=== PATIENT | female | born 1995 | race Caucasian/White ===

== ENCOUNTER 2018-01-03 18:13 | Emergency (ER) | payer OTHER, SELFPAY ==
[2018-01-03] MEDS ORDERED: HYDROCODONE/APAP 5/325 MG TAB ONE (19:05)
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
== END 2018-01-03 20:56 | disposition home or self-care (01) ==
LOC: ER 18:13
DX: S02.32XA Fracture of orbital floor, left side, initial encounter for closed fracture (principal); Y09 Assault by unspecified means
CPT/HCPCS: 70450; 99284

== ENCOUNTER 2018-03-18 14:57 | Emergency (ER) | payer SELFPAY ==
--- NOTE | 2018-03-18 15:32 | RAD REPORT ---
EXAM DESCRIPTION: Tab Rios (2 Views)03/18/2018 3:26 pm CLINICAL HISTORY: Cough COMPARISON: 2015 FINDINGS: The lungs appear clear of acute infiltrate. The heart is normal size IMPRESSION: No acute abnormalities displayed
--- NOTE | 2018-03-18 16:01 | EDPHYS ---
Physician Documentation [facility] Name: Miguelina Aranda Age: 22 yrs Sex: Female : 1995 Arrival Date: 03/18/2018 Time: 14:59 Bed 10 Private MD: None, None ED Physician Jama Myers HPI: 03/18 15:54 This 22 yrs old Female presents to ER via Ambulatory with complaints of jr8 Cough, BODY ACHES. 15:54 The patient or guardian reports cough, that is intermittent, described as mild, with no jr8 sputum. Onset: The symptoms/episode began/occurred acutely, 3 day(s) ago. Severity of symptoms: At their worst the symptoms were mild, in the emergency department the symptoms are unchanged. Modifying factors: The symptoms are alleviated by nothing, the symptoms are aggravated by nothing. Associated signs and symptoms: Pertinent positives: rhinorrhea, arthralgias and myalgias . The patient has not experienced similar symptoms in the past. The patient has not recently seen a physician. Historical: - Allergies: 15:01 No Known Allergies; sv - PMHx: 15:01 Pneumonia; sv - PSHx: 15:01 None; sv - Immunization history:: Flu vaccine is up to date. - Social history:: Smoking status: Patient uses tobacco products, smokes one pack cigarettes per day. - Ebola Screening: : No symptoms or risks identified at this time. ROS: 15:54 Constitutional: Positive for body aches, Negative for fever. jr8 15:54 ENT: Positive for rhinorrhea, Negative for drainage from ear(s), ear pain, sinus congestion, sinus pain, sore throat, difficulty swallowing, difficulty handling secretions. 15:54 Respiratory: Positive for cough, Negative for dyspnea on exertion, shortness of breath, sputum production, wheezing. 15:54 All other systems are negative. Exam: 15:54 Eyes: Pupils equal round and reactive to light, extra-ocular motions intact. Lids and jr8 lashes normal. Conjunctiva and sclera are non-icteric and not injected. Cornea within normal limits. Periorbital areas with no swelling, redness, or edema. ENT: Nares patent. No nasal discharge, no septal abnormalities noted. Tympanic membranes are normal and external auditory canals are clear. Oropharynx with no redness, swelling, or masses, exudates, or evidence of obstruction, uvula midline. Mucous membranes moist. Neck: Trachea midline, no thyromegaly or masses palpated, and no cervical lymphadenopathy. Supple, full range of motion without nuchal rigidity, or vertebral point tenderness. No Meningismus. Cardiovascular: Regular rate and rhythm with a normal S1 and S2. No gallops, murmurs, or rubs. Normal PMI, no JVD. No pulse deficits. Respiratory: Lungs have equal breath sounds bilaterally, clear to auscultation and percussion. No rales, rhonchi or wheezes noted. No increased work of breathing, no retractions or nasal flaring. Abdomen/GI: Soft, non-tender, with normal bowel sounds. No distension or tympany. No guarding or rebound. No evidence of tenderness throughout. Back: No spinal tenderness. No costovertebral tenderness. Full range of motion. Skin: Warm, dry with normal turgor. Normal color with no rashes, no lesions, and no evidence of cellulitis. MS/ Extremity: Pulses equal, no cyanosis. Neurovascular intact. Full, normal range of motion. Neuro: Awake and alert, GCS 15, oriented to person, place, time, and situation. Cranial nerves II-XII grossly intact. Motor strength 5/5 in all extremities. Sensory grossly intact. Cerebellar exam normal. Normal gait. Vital Signs: 15:01 BP 109 / 76; Pulse 93; Resp 18; Temp 98.2; Pulse Ox 100% ; Weight 53.52 kg; Height 5 sv ft. 5 in. (165.10 cm); Pain 5/10; 15:01 Body Mass Index 19.63 (53.52 kg, 165.10 cm) sv MDM: 15:21 Patient medically screened. ma2 15:54 Data reviewed: vital signs, nurses notes, lab test result(s), Flu: negative radiologic jr8 studies, plain films, and as a result, I will discharge patient. Data interpreted: Pulse oximetry: on room air is 100 %. Interpretation: normal. Counseling: I had a detailed discussion with the patient and/or guardian regarding: the historical points, exam findings, and any diagnostic results supporting the discharge/admit diagnosis, lab results, radiology results, the need for outpatient follow up, a family practitioner, to return to the emergency department if symptoms worsen or persist or if there are any questions or concerns that arise at home. 03/18 15:03 Order name: Flu; Complete Time: 15:49 sv 03/18 15:03 Order name: Chest Pa And Lat (2 Views) XRAY; Complete Time: 15:49 sv Administered Medications: No medications were administered Disposition: 18:43 Co-signature as Attending Physician, Jama Myers MD. ma2 Disposition: 03/18/18 15:59 Discharged to Home. Impression: Acute upper respiratory infection, unspecified. - Condition is Stable. - Discharge Instructions: Upper Respiratory Infection, Adult. - Prescriptions for Guaifenesin AC 10- 100 mg/5 mL Oral Liquid - take 10 milliliters by ORAL route every 4 hours As needed; 120 milliliter. - Medication Reconciliation Form, Thank You Letter, Antibiotic Education, Prescription Opioid Use form. - Follow up: Private Physician; When: As needed; Reason: If symptoms return, Recheck today's complaints, Continuance of care, Re-evaluation by your physician. - Problem is new. - Symptoms have improved. Signatures: Dispatcher [employer] [facility] Lynn White RN RN Katie Chadwick RN RN ss Roszak, Josh, PA PA jr8 Jama Myers MD MD ma2 Corrections: (The following items were deleted from the chart) 16:06 15:59 03/18/2018 15:59 Discharged to Home. Impression: Acute upper respiratory ss infection, unspecified. Condition is Stable. Forms are Medication Reconciliation Form, Thank You Letter, Antibiotic Education, Prescription Opioid Use. Follow up: Private Physician; When: As needed; Reason: If symptoms return, Recheck today's complaints, Continuance of care, Re-evaluation by your physician. Problem is new. Symptoms have improved. jr8
--- NOTE | 2018-03-18 16:01 | ER ---
Nurse's Notes [facility] Name: Miguelina Aranda Age: 22 yrs Sex: Female : 1995 Arrival Date: 03/18/2018 Time: 14:59 Bed 10 Private MD: None, None Diagnosis: Acute upper respiratory infection, unspecified Presentation: 03/18 15:00 Presenting complaint: Patient states: non-productive cough, bodyaches x 3 days. sv Transition of care: patient was not received from another setting of care. Onset of symptoms was March 15, 2018. Care prior to arrival: None. 15:00 Method Of Arrival: Ambulatory sv 15:00 Acuity: ANJUM 4 sv 16:06 Risk Assessment: Do you want to hurt yourself or someone else? Patient reports no ss desire to harm self or others. Initial Sepsis Screen: Does the patient meet any 2 criteria? No. Patient's initial sepsis screen is negative. Does the patient have a suspected source of infection? No. Patient's initial sepsis screen is negative. Triage Assessment: 15:00 General: Appears in no apparent distress. uncomfortable, slender, Behavior is calm, sv cooperative, appropriate for age. Pain: Complains of pain in "my whole body" Pain currently is 5 out of 10 on a pain scale. Quality of pain is described as aching, Pain began 2-3 days ago. Is continuous. Neuro: Level of Consciousness is awake, alert, obeys commands, Oriented to person, place, time, situation, Moves all extremities. Gait is steady. Respiratory: Reports cough that is non-productive, Airway is patent Respiratory effort is even, unlabored, Respiratory pattern is regular, symmetrical. Derm: Skin is pink, warm \\T\\ dry. Historical: - Allergies: 15:01 No Known Allergies; sv - PMHx: 15:01 Pneumonia; sv - PSHx: 15:01 None; sv - Immunization history:: Flu vaccine is up to date. - Social history:: Smoking status: Patient uses tobacco products, smokes one pack cigarettes per day. - Ebola Screening: : No symptoms or risks identified at this time. Screenin:05 Abuse screen: Denies threats or abuse. Denies injuries from another. Nutritional sv screening: No deficits noted. Tuberculosis screening: No symptoms or risk factors identified. Fall Risk None identified. Assessment: 15:05 Reassessment: Patient appears in no apparent distress at this time. No changes from previously documented assessment. See triage assessment. Vital Signs: 15:01 BP 109 / 76; Pulse 93; Resp 18; Temp 98.2; Pulse Ox 100% ; Weight 53.52 kg; Height 5 sv ft. 5 in. (165.10 cm); Pain 5/10; 15:01 Body Mass Index 19.63 (53.52 kg, 165.10 cm) ED Course: 14:59 Patient arrived in ED. sb2 15:00 None, None is Private Physician. sb2 15:01 Triage completed. sv 15:03 Arm band placed on. sv 15:05 Patient has correct armband on for positive identification. Door closed. sv 15:21 Jama Myers MD is Attending Physician. ma2 15:21 X-ray completed. Patient tolerated procedure well. Patient moved to radiology pt mh1 ambulated to radiology. 15:24 Chest Pa And Lat (2 Views) XRAY In Process Unspecified. EDMS 15:31 Awaiting lab results, Awaiting radiology results. sv 15:48 Alo Wheatley PA is PHCP. jr8 15:48 Jama Myers MD is Attending Physician. jr8 16:04 No provider procedures requiring assistance completed. Patient did not have IV access ss during this emergency room visit. Administered Medications: No medications were administered Outcome: 15:59 Discharge ordered by . jr8 16:04 Discharged to home ambulatory. ss 16:04 Condition: good 16:04 Discharge instructions given to patient, family, Instructed on discharge instructions, follow up and referral plans. medication usage, Demonstrated understanding of instructions, follow-up care, medications, Prescriptions given X 1. 16:06 Patient left the ED. ss Signatures: Dispatcher [employer] EDMS Lynn White RN RN Maritza Antonio 1 Katie Chadwick RN RN Alo Wheatley PA PA jr8 Jama Myers MD MD ma2 Billeau, Sheri sb2 Corrections: (The following items were deleted from the chart) 15:03 15:01 Pulse 93bpm; Resp 18bpm; Pulse Ox 100%; Temp 98.2F; 53.52 kg; Height 5 ft. 5 in.; sv BMI: 19.6; Pain 5/10; sv
== END 2018-03-18 16:06 | disposition home or self-care (01) ==
LOC: ER 14:57
DX: J06.9 Acute upper respiratory infection, unspecified (principal); F17.210 Nicotine dependence, cigarettes, uncomplicated
CPT/HCPCS: 71046; 87804; 99283

== ENCOUNTER 2018-06-16 15:36 | Emergency (ER) | payer SELFPAY ==
[2018-06-16 15:57] LABS: Absolute Lymphocytes (CBC) 1.7 K/uL (0.7-4.9); Absolute Neutrophil 6.9 K/uL (1.8-8.0); Basophils % 0.6 % (0-1.3); Eosinophils % 2.1 % (0-4.4); Hematocrit 36.6 % (36.0-45.0); Lymphocytes % 17.4 % (15.3-44.8); Monocytes % 9.7 % (3.3-12.3); RBC Red Blood Cell Count 4.01 M/uL (3.86-4.86)
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
[2018-06-16] MEDS ORDERED: NA CHLORIDE 0.9% 1,000 ML ONE (16:02)
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
[2018-06-16 17:33] LABS: Barbiturates NEGATIVE (NEGATIVE); Benzodiazepines POSITIVE (NEGATIVE); Cocaine NEGATIVE (NEGATIVE); METHAMPHETAM POSITIVE (NEGATIVE); Methadone NEGATIVE (NEGATIVE); Opiates NEGATIVE (NEGATIVE); Phencyclidine NEGATIVE (NEGATIVE); THC Cannibis POSITIVE (NEGATIVE)
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
[2018-06-16 17:59] LABS: Urine Blood TRACE (NEG); Urine Glucose NEGATIVE (NEG); Urine Protein NEGATIVE (NEG); Urine Specific Gravity 1.015 (1.005-1.030)
--- NOTE | 2018-06-16 21:39 | EKG ---
Test Date: 2018-06-16 Test Time: 15:42:38 Tractor Operator Laser Leveling: VENECIA MEASUREMENT RESULTS: Intervals: Rate: 90 SC: 136 QRSD: 98 QT: 364 QTc: 445 [place]: P: 74 SC: 136 QRS: 66 T: 41 INTERPRETIVE STATEMENTS: Normal sinus rhythm Normal ECG Compared to ECG 05/17/2014 10:37:18 No significant changes Electronically Signed On 06-16-18 21:38:10 CDT by Jesse Quinn
== END 2018-06-16 18:02 | disposition home or self-care (01) ==
LOC: ER 15:36
DX: S06.0X0A Concussion without loss of consciousness, initial encounter (principal); F19.10 Other psychoactive substance abuse, uncomplicated; S09.90XA Unspecified injury of head, initial encounter; V49.9XXA Car occupant (driver) (passenger) injured in unspecified traffic accident, initial encounter
CPT/HCPCS: 36415; 70450; 70486; 71260; 72125; 74177; 76377; 80307; 80320; 81003; 81025; 85025; 86850; 86900; 86901; 93005; J7030; Q9967

== ENCOUNTER 2018-06-27 22:09 | Emergency (ER) | payer SELFPAY ==
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
[2018-06-27] MEDS ORDERED: ALBUTEROL 2.5 MG/3 ML NEB SOL ONE (23:35)
[2018-06-27] MEDS ORDERED: IPRATROPIUM BROM 0.5MG/2.5ML ONE (23:35)
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
== END 2018-06-27 23:31 | disposition left against medical advice (07) ==
LOC: ER 22:09
DX: J02.9 Acute pharyngitis, unspecified (principal); F17.210 Nicotine dependence, cigarettes, uncomplicated
CPT/HCPCS: 87070; 87081; 87804; 99283

== ENCOUNTER 2018-10-07 14:28 | Emergency (ER) | payer SELFPAY ==
[2018-10-07] MEDS ORDERED: NA CHLORIDE 0.9% 1,000 ML ONE (14:57)
[2018-10-07 15:04] LABS: Absolute Lymphocytes (CBC) 1.9 K/uL (0.7-4.9); Basophils % 0.5 % (0-1.3); Hematocrit 37.6 % (36.0-45.0); Lymphocytes % 24.6 % (15.3-44.8); MPV 10.4 fL (7.6-11.3); RBC Red Blood Cell Count 4.09 M/uL (3.86-4.86)
[2018-10-07 15:21] LABS: ALT/SGPT 22 U/L (12-78); AST/SGOT 18 U/L (15-37); Albumin 3.6 g/dL (3.4-5.0); Alkaline Phosphatase 61 U/L (45-117); BUN Blood Urea Nitrogen 5 mg/dL (7-18); Bicarbonate 30 mmol/L (21-32); Bilirubin Direct 0.1 mg/dL (0-0.2); Bilirubin Total 0.2 mg/dL (0.2-1.0); Glucose Level 72 mg/dL (74-106); Potassium 3.9 mmol/L (3.5-5.1); Protein, Total 7.1 g/dL (6.4-8.2); Sodium Level 140 mmol/L (136-145)
[2018-10-07 15:25] LABS: Protime INR 0.95
[2018-10-07 16:48] LABS: Urine Blood TRACE (NEG); Urine Glucose NEGATIVE (NEG); Urine Protein NEGATIVE (NEG)
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
[2018-10-07 17:02] LABS: Barbiturates NEGATIVE (NEGATIVE); Benzodiazepines POSITIVE (NEGATIVE); Cocaine NEGATIVE (NEGATIVE); METHAMPHETAM POSITIVE (NEGATIVE); Methadone NEGATIVE (NEGATIVE); Opiates POSITIVE (NEGATIVE); Phencyclidine NEGATIVE (NEGATIVE); THC Cannibis POSITIVE (NEGATIVE)
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
--- NOTE | 2018-10-07 22:17 | EKG ---
Test Date: 2018-10-07 Test Time: 15:20:18 Clinical Trial Coordinator: VENECIA MEASUREMENT RESULTS: Intervals: Rate: 74 [place]: 144 QRSD: 100 QT: 400 QTc: 444 [place]: P: 74 [place]: 144 QRS: 92 T: 70 INTERPRETIVE STATEMENTS: Normal sinus rhythm Rightward axis Incomplete right bundle branch block Borderline ECG Compared to ECG 06/16/2018 15:42:38 Right-axis deviation now present Incomplete right bundle-branch block now present Electronically Signed On 10-07-18 22:16:43 CDT by Manuel Cummings
== END 2018-10-07 17:09 | disposition home or self-care (01) ==
LOC: ER 14:28
DX: F19.10 Other psychoactive substance abuse, uncomplicated (principal)
CPT/HCPCS: 36415; 80048; 80076; 80307; 80320; 80329; 81003; 81025; 85025; 85610; 85730; 93005; 96360; 96361; 99284; J7030

== ENCOUNTER → 2023-03-15 | Emergency (ER) | payer BC ==
[~2023-03-15] MED LIST: HYDROCODONE/APAP 5/325 MG TAB ONE; MAGNESIUM SULFATE 1 gm IVPB 1 GM/100 ML BAG IV ONE; MORPHINE 2 MG/ML SYR ONE; NA CHLORIDE 0.9% 1,000 ML ONE; ONDANSETRON 4 MG/2 ML VIAL ONE; TAMSULOSIN 0.4 MG SR CAP ONE
--- OUTSIDE RECORDS SUMMARY | 2023-03-15 09:51 | XMS REPORT | Continuity of Care Document ---
Author Name Unknown Address [address] [facility] [address]. [address] [place] [address] [facility] thconnect Address [address] [facility]. [address] [place] [address] Care Team Providers Care Grades 1 Thru 6 Visiting Teacher Name Role Phone Pcp, Patient Does Not Have A Primary Care Physic reggie RAZA HORN Attending Clinician [facility] Attending Clinician Unavailable Doctor Unassigned, [place] Attending Clinician U Jaclyn Sierra Attending Clinician [phone] Payers Payer Name Policy Type Policy Number Effective Date Expirati on Date Source [facility] 9 [id number] 2022 00:00:00 BS 2 [id number] 2022 00:00:00 Allergies, Adverse Reactions, Alerts Allergy Name Allergy Type Status Severity Reaction(s) Onset Date Inactive Date Treating Clinician Comments Source NO KNOWN ALLERGIE S Drug Class Active [facility] Social History Social Habit Start Date Stop Date Quantity Comments Source Gender identity Izzy Pickard - External Sexual orientation [facility] Alcohol intake 2022-10-14 00:00:00 2022-10-14 00:00:00 .29 /d More Pickard - External History of Social function 2022-10-14 00:00:00 2022-10-14 00:00:00 More Sebrockhemant - External Exposure to SARS-CoV-2 (event) 2019-12-09 00:00:00 2020-01-08 21:11:00 Not sure [facility] Sex Assigned At 1995 00:00:00 1995 00:00:00 More Pickard - External Smoking Status Start Date Stop Date Source Never smoked tobacco More Poncericky - External Tobacco smoking consumption unknown [facility] Medications Ordered Medication Name Filled Medication Name Start Date Stop Date Current Medication? Ordering Clinician Indication Dosage Frequency Signature (SIG) Comments Components Source albuterol 90 mcg/actuati on inhaler 07-06 00:00: 00 Yes 2{puff} Inhale 2 Puffs every 4 (four) hours as needed for Wheezing or Shortness of Breath. [facility] codeine-gua ifenesin 10-100 mg/5 mL solution 07-06 00:00: 00 Yes 5mL Take 5 mL by mouth every 6 (six) hours as needed for Cough. [facility] albuterol 90 mcg/actuati on inhaler 07-06 00:00: 00 Yes 2{puff} Inhale 2 Puffs every 4 (four) hours as needed for Wheezing or Shortness of Breath. [facility] codeine-gua ifenesin 10-100 mg/5 mL solution 07-06 00:00: 00 Yes 5mL Take 5 mL by mouth every 6 (six) hours as needed for Cough. [facility] ondansetron 4 mg disintegrat ing tablet 03-31 00:00: 00 Yes 4mg Take 1 tablet by mouth every 8 (eight) hours as needed for Nausea and Vomiting (N/V). [facility] naproxen sodium (ANAPROX DS) 550 mg tablet 03-31 00:00: 00 Yes 550mg Take 1 tablet by mouth 2 (two) times daily with meals. [facility] Phenylephri ne-DM-Aceta minophen (TYLENOL COLD MAX DAY) 5-10-325 mg Tab 03-31 00:00: [address] [facility] Doxylamine- PE-DM-Aceta minophen (TYLENOL COLD MAX NIGHT) 6.25-5-10-3 25 mg/15 mL Liqd 03-31 00:00: [address] [facility] albuterol 90 mcg/actuati on inhaler 03-31 00:00: 00 Yes 2{puff} Inhale 2 Puffs every 4 (four) hours as needed for Wheezing or Shortness of Breath. [facility] ondansetron 4 mg disintegrat ing tablet 03-31 00:00: 00 Yes 4mg Take 1 tablet by mouth every 8 (eight) hours as needed for Nausea and Vomiting (N/V). [facility] naproxen sodium (ANAPROX DS) 550 mg tablet 03-31 00:00: 00 Yes 550mg Take 1 tablet by mouth 2 (two) times daily with meals. [facility] Phenylephri ne-DM-Aceta minophen (TYLENOL COLD MAX DAY) 5-10-325 mg Tab 03-31 00:00: [address] [facility] Doxylamine- PE-DM-Aceta minophen (TYLENOL COLD MAX NIGHT) 6.25-5-10-3 25 mg/15 mL Liqd 03-31 00:00: [address] [facility] albuterol 90 mcg/actuati on inhaler 03-31 00:00: 00 Yes 2{puff} Inhale 2 Puffs every 4 (four) hours as needed for Wheezing or Shortness of Breath. [facility] Nitrofurant oin&Nit. Macrocryst (MACROBID) 100 mg capsule 10-24 00:00: 00 Yes 100mg Take 1 capsule by mouth 2 (two) times daily. [facility] phenazopyri dine 200 mg tablet 10-24 00:00: 00 Yes 200mg Take 1 tablet by mouth 3 (three) times daily. [facility] traMADOL (ULTRAM) 50 mg tablet 10-24 00:00: 00 Yes 50mg Take 1 tablet by mouth every 6 (six) hours as needed for Pain (scale 7-10). [facility] ondansetron (ZOFRAN, HYDROCHLORI DE,) 4 mg tablet 10-24 00:00: 00 Yes 4mg Take 1 tablet by mouth every 8 (eight) hours as needed for Nausea and Vomiting (N/V). [facility] Nitrofurant oin&Nit. Macrocryst (MACROBID) 100 mg capsule 10-24 00:00: 00 Yes 100mg Take 1 capsule by mouth 2 (two) times daily. [facility] phenazopyri dine 200 mg tablet 10-24 00:00: 00 Yes 200mg Take 1 tablet by mouth 3 (three) times daily. [facility] traMADOL (ULTRAM) 50 mg tablet 10-24 00:00: 00 Yes 50mg Take 1 tablet by mouth every 6 (six) hours as needed for Pain (scale 7-10). [facility] ondansetron (ZOFRAN, HYDROCHLORI DE,) 4 mg tablet 10-24 00:00: 00 Yes 4mg Take 1 tablet by mouth every 8 (eight) hours as needed for Nausea and Vomiting (N/V). [facility] Vital Signs Vital Name Observation Time Observation Value Comments S ource Systolic blood pressure 2022-10-14 19:32:00 102 mm[Hg] More Bhat ld - External Diastolic blood pressure 2022-10-14 19:32:00 68 mm[Hg] More Bhat ld - External Heart rate 2022-10-14 19:32:00 76 /min Katiuska Pickard - External Body temperature 2022-10-14 19:32:00 36.06 Patricia More Pickard - External Respiratory rate 2022-10-14 19:32:00 14 /min More Pickard - External Body height 2022-10-14 19:32:00 167.6 cm Izzy ey Seybold - External Body weight 2022-10-14 19:32:00 53.524 kg Izzy ey Seybold - External BMI 2022-10-14 19:32:00 19.05 kg/m2 Izzy ey Seybold - External Systolic blood pressure 2020-01-09 03:19:00 132 mm[Hg] [facility] Diastolic blood pressure 2020-01-09 03:19:00 68 mm[Hg] [facility] Heart rate 2020-01-09 03:19:00 98 /min [facility] Body temperature 2020-01-09 03:19:00 37.5 Patricia [facility] Respiratory rate 2020-01-09 03:19:00 18 /min [facility] Body weight 2020-01-09 03:19:00 48.988 kg [facility] Oxygen saturation in Arterial blood by Pulse oximetry 2020-01-09 03:19:00 98 /min [facility] Procedures Procedure Date / Time Performed Performing Clinicia n Source CONSENT/REFUSAL FOR DIAGNOSIS AND TREATMENT 2020-01-09 03:12:08 Doctor Unassigned, [place] [facility] Encounters Start Date/Time End Date/Time Encounter Type Admission Type Attending Clinicians Care Facility Care Department Encounter ID Source 2022-10-25 00:00:00 2022-10-25 00:00:00 Outpatient RAZA HORN [id number] [facility] 2022-10-15 00:00:00 2022-10-15 00:00:00 Outpatient RAZA HORN [id number] [facility] 2022-10-14 14:50:00 2022-10-14 14:50:00 Outpatient LAB90 MORE AQUINO [id number] [facility] 2022-10-14 14:00:00 2022-10-14 14:00:00 Outpatient RAZA HORN [id number] [facility] 2022-10-02 13:30:00 2022-10-02 13:30:00 Outpatient RAZA HORN [id number] More [facility] 2020-01-12 00:00:00 2020-01-12 00:00:00 Patient Secure Msg Doctor Unassigned, [place] [facility] [id number] [facility] 2020-01-08 21:21:00 2020-01-08 21:57:00 Emergency Jaclyn De La Cruz [facility] [id number] [facility] 2020-01-08 21:12:00 2020-01-08 21:12:[address] [facility] ERT [id number] [facility] Notes Date/Time Note Provider Source 2022-10-14 14:36:50 [id number] -08-28T14:36:50 Chief Complaint Patient presents with Physical Patient is fasting. Patient would like STD [place] [id number] [id number] for patient [id number] NoteLNDepartment of Veterans Affairs [facility] [facility] [id number] [place]"
[2023-03-15 10:49] LABS: Absolute Lymphocytes (CBC) 2.1 K/uL (0.7-4.9); Hematocrit 35.9 % (36.0-45.0); Lymphocytes % 24.7 % (15.3-44.8); MCV 92.3 fL (80-100); MPV 9.5 fL (7.6-11.3); Platelets 219 thou/uL (152-406); RBC Red Blood Cell Count 3.89 M/uL (3.86-4.86)
[2023-03-15 11:05] LABS: Albumin 3.6 g/dL (3.4-5.0); Bilirubin Total 0.5 mg/dL (0.2-1.0); Potassium 3.8 mEq/L (3.5-5.1)
[2023-03-15 11:47] LABS: Calcium Oxalate Crystals- Ur Few /HPF (None Seen); Specific Gravity 1.015 (1.005-1.030); Urine Bacteria <20 /HPF (<20); Urine Bilirubin NEGATIVE (Negative); Urine Blood 3+ (OVER) (Negative); Urine Clarity Extremely Turbid (Clear); Urine Color Light-Yellow (Yellow); Urine Glucose NEGATIVE (Negative); Urine Mucus 1+ /HPF (None Seen); Urine Protein TRACE (Negative); Urine RBC >50 /HPF (None Seen); Urine Urobilinogen Normal (Normal)
[2023-03-15 11:49] LABS: Specific Gravity 1.015 (1.005-1.030)
--- NOTE | 2023-03-15 12:39 | RAD REPORT ---
EXAM DESCRIPTION: CT - Abdomen Pelvis W Contrast - 03/15/2023 12:08 pm CLINICAL HISTORY: Abdominal pain COMPARISON: 2013 TECHNIQUE: Computed axial tomography of the abdomen pelvis was obtained. 100 cc Isovue-300 was admin istered intravenously. Oral contrast was not requested which limits evaluation of bowel and appendix All CT scans are performed using dose optimization technique as appropriate and may include automated exposure control or mA/KV adjustment according to patient size. FINDINGS: Mildly prominent left lobe liver. Liver otherwise unremarkable. The Spleen, pancreas and adrenals are unremarkable 2 millimeter calculus left kidney. No hydronephrosis Several small right renal calculi. 3 millimeter calculus right UPJ with mild right hydronephrosis. No evidence of diverticulitis. An abnormal appendix is not visualized. 2 centimeter irregularly-shaped right ovarian cyst has recently ruptured. No significant free fluid. No follow-up recommended IMPRESSION: 3 millimeter calculus right UPJ with mild right hydronephrosis
--- NOTE | 2023-03-15 13:03 | EDPHYS ---
Physician Documentation [facility] Name: Miguelina Aranda Age: 27 yrs Sex: Female : 1995 Arrival Date: 03/15/2023 Time: 09:48 Bed 17 Private MD: ED Physician Kendell Jiménez HPI: 03/15 10:35 This 27 yrs old Female presents to ER via Ambulatory with complaints of Abdominal Pain, sb4 Back Pain, Vomiting. 10:35 The patient presents with abdominal pain right lower quadrant. Onset: The sb4 symptoms/episode began/occurred today. The symptoms radiate to the right flank. Associated signs and symptoms: Pertinent positives: nausea and vomiting. right flank pain that radiates to RLQ pain started this morning. history of kidney stones. denies any fever or diarrhea. states advil helped the pain. no urinary symptoms. 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 - Social history:: Smoking status: Reported history of juuling and/or vaping. ROS: 10:35 Constitutional: Negative for fever, chills, and weight loss, sb4 10:35 Abdomen/GI: Positive for abdominal pain, nausea and vomiting, 10:35 Back: Positive for flank pain, on the right, 10:35 All other systems are negative, Exam: 10:35 Constitutional: This is a well developed, well nourished patient who is awake, alert, sb4 and in no acute distress. Head/Face: Normocephalic, atraumatic. Eyes: Extra-ocular motions intact. Periorbital areas with no swelling, redness, or edema. ENT: Mucous membranes moist. Cardiovascular: Regular rate and rhythm with a normal S1 and S2. Respiratory: Lungs have equal breath sounds bilaterally, clear to auscultation and percussion. No rales, rhonchi or wheezes noted. No increased work of breathing, no retractions or nasal flaring. Skin: Warm, dry with normal turgor. Normal color with no rashes, no lesions, and no evidence of cellulitis. MS/ Extremity: Pulses equal, no cyanosis. Neurovascular intact. Full, normal range of motion. Neuro: Awake and alert, GCS 15, oriented to person, place, time, and situation. Motor strength 5/5 in all extremities. Sensory grossly intact. 10:35 Abdomen/GI: Inspection: abdomen appears normal, Bowel sounds: normal, Palpation: soft, mild abdominal tenderness, in the right lower quadrant, 10:35 Back: CVA tenderness, that is mild, is noted on the right, Vital Signs: 10:27 BP 112 / 71; Pulse 87; Resp 18; Temp 97.2; Pulse Ox 99% on R/A; Weight 54.43 kg; Height ph 5 ft. 6 in. ; 13:45 BP 117 / 65; Pulse 84; Resp 18; Pulse Ox 100% ; cp4 10:27 Body Mass Index 19.37 (54.43 kg, 167.64 cm) ph MDM: 09:59 Patient medically screened. sb4 10:35 Differential diagnosis: appendicitis, Cholelithiasis, Ectopic , non-specific sb4 abd pain, Pyelonephritis, Ureterolithiasis, urinary tract infection. 13:02 Data reviewed: vital signs, nurses notes, lab test result(s), radiologic studies, and sb4 as a result, I will discharge patient. Historians other than the Patient: Parent: mother. Counseling: I had a detailed discussion with the patient and/or guardian regarding the historical points, exam findings, and any diagnostic results supporting the discharge/admit diagnosis, lab results, radiology results, the need for outpatient follow up, a urologist, to return to the emergency department if symptoms worsen or persist or if there are any questions or concerns that arise at home. 03/15 10:33 Order name: CBC with Diff; Complete Time: 11:00 sb4 03/15 10:33 Order name: CMP; Complete Time: 11:06 sb4 03/15 10:33 Order name: Lipase; Complete Time: 11:06 sb4 03/15 10:33 Order name: Test, Urine; Complete Time: 11:50 sb4 03/15 11:06 Order name: UAM; Complete Time: 11:49 sb4 03/15 10:33 Order name: CT Abd/Pelvis - IV Contrast Only; Complete Time: 12:41 sb4 03/15 10:33 Order name: IV Saline Lock; Complete Time: 10:43 sb4 03/15 10:33 Order name: Labs collected and sent; Complete Time: 10:43 sb4 Administered Medications: 10:49 Drug: NS 0.9% IV 1000 ml IV at 1 bolus Per protocol; 1000 mL bolus Route: IV; Rate: 1 cp4 bolus; Site: right antecubital; 11:49 Follow up: Response: No adverse reaction; IV Status: Completed infusion cp4 10:49 Drug: Ondansetron IVP 4 mg IVP once; over 2 minutes Route: IVP; Site: right antecubital;cp4 11:49 Follow up: Response: No adverse reaction cp4 10:50 Drug: morphine IVP or IV 4 mg IVP once over 4 mins Route: IVP; Infused Over: 4 mins; cp4 Site: right antecubital; 11:49 Follow up: Response: No adverse reaction cp4 11:50 Not Given (Has taken advil.): TORadol - [id number] mg IVP once cp4 13:01 Drug: Flomax PO 0.4 mg PO once Route: PO; cp4 13:01 Drug: Magnesium Sulfate IVPB 1 grams IVPB once over 1 hrs Route: IVPB; Infused Over: 1 cp4 hrs; Site: right antecubital; 13:39 Drug: HYDROcodone-acetaminophen PO 5 mg-325 mg 2 tabs PO once Route: PO; cp4 Disposition: 10:59 Co-signature as Attending Physician, Kendell Jiménez MD I reviewed the patient's care rt provided by the Advanced Practice Provider and agree with the diagnosis and treatment plan. Disposition Summary: 03/15/23 13:03 Discharge Ordered Notes: Location: Home sb4 Problem: new sb4 Symptoms: have improved sb4 Condition: Stable sb4 Diagnosis - 3 mm right ureterolithiasis with mild hydronephrosis sb4 Followup: sb4 - With: Jostin Aviles MD - When: 1 week - Reason: Recheck today's complaints, Re-evaluation by your physician Discharge Instructions: - Discharge Summary Sheet sb4 - Kidney Stones, [id number] sb4 Forms: - Work release form sb4 - Medication Reconciliation Form sb4 - Thank You Letter sb4 - Antibiotic Education sb4 - Prescription Opioid Use sb4 - Patient Portal Instructions sb4 - Leadership Thank You Letter sb4 Prescriptions: - ketorolac 10 mg Oral tablet - take 1 tablet ORAL route every 4 to 6 hours as needed for pain; do not exceed 4 sb4 doses per 24 hrs; 12 tablet; Refills: 0, Product Selection Permitted - tamsulosin 0.4 mg Oral capsule - take 1 capsule ORAL route every day at bedtime; 30 capsule; Refills: 0, Product sb4 Selection Permitted - Tramadol 50 mg Oral Tablet - take 1 tablet ORAL route every 8 hours as needed; 12 tablet; Refills: 0, sb4 Product Selection Permitted Signatures: Dispatcher [employer] Zuleyka Pardo RN RN ph Jaswant, Emily, ELIESER PABossman sb4 Kendell Jiménez MD MD rt Sylvia Person cp4
--- NOTE | 2023-03-15 13:03 | ER ---
Nurse's Notes [facility] Name: Miguelina Aranda Age: 27 yrs Sex: Female : 1995 Arrival Date: 03/15/2023 Time: 09:48 Bed 17 Private MD: Diagnosis: 3 mm right ureterolithiasis with mild hydronephrosis Presentation: 03/15 10:27 Chief complaint: Patient states: RUQ pain that radiates to back, started last night, ph reports taking motrin that helped temporarily, also reports N/V today, denies fever or chiils. Coronavirus screen: Vaccine status: Patient reports receiving the 1st dose of the Covid vaccine. Ebola Screen: No symptoms or risks identified at this time. 10:27 Method Of Arrival: Ambulatory ph 10:29 Initial Sepsis Screen: Does the patient meet any 2 criteria? No. Patient's initial ph sepsis screen is negative. Does the patient have a suspected source of infection? No. Patient's initial sepsis screen is negative. Risk Assessment: Do you want to hurt yourself or someone else? Patient reports no desire to harm self or others. Onset of symptoms was March 15, 2023. 10:29 Acuity: ANJUM 3 ph Triage Assessment: 10:30 General: Appears in no apparent distress. uncomfortable, slender, well groomed, ph Behavior is calm, cooperative, appropriate for age. Pain: Complains of pain in right upper quadrant Pain radiates to back. GI: Reports upper abdominal pain, nausea, vomiting, Patient currently denies diarrhea. : Denies burning with urination, urinary frequency. 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 - Social history:: Smoking status: Reported history of juuling and/or vaping. Screenin:[address] [facility] ED Fall Risk Assessment (Adult) History of falling in the last 3 months, ph including since admission No falls in past 3 months (0 pts) Score/Fall Risk Level 0 - 2 = Low Risk Oriented to surroundings, Maintained a safe environment, Provided non-skid footwear, Hourly rounding (assess needs \T\ fall precautionary measures) done. Abuse screen: Denies threats or abuse. Denies injuries from another. Nutritional screening: No deficits noted. Tuberculosis screening: No symptoms or risk factors identified. Assessment: 13:46 General: Appears in no apparent distress. Behavior is calm, cooperative, appropriate cp4 for age. 13:48 GI: Bowel sounds present X 4 quads. Abd is soft and non tender X 4 quads. cp4 Vital Signs: 10:27 BP 112 / 71; Pulse 87; Resp 18; Temp 97.2; Pulse Ox 99% on R/A; Weight 54.43 kg; Height ph 5 ft. 6 in. ; 13:45 BP 117 / 65; Pulse 84; Resp 18; Pulse Ox 100% ; cp4 10:27 Body Mass Index 19.37 (54.43 kg, 167.64 cm) ph ED Course: 09:50 Patient arrived in ED. mr 09:51 Emily Michaud PA-C is PHCP. sb4 09:51 Kendell Jiménez MD is Attending Physician. sb4 10:24 Sylvia Person is Primary Nurse. cp4 10:29 Triage completed. ph 10:30 Arm band placed on Patient placed in an exam room, on a stretcher. ph 10:31 Patient has correct armband on for positive identification. Bed in low position. Call ph light in reach. Side rails up X 1. Pulse ox on. NIBP on. Door closed. Noise minimized. 10:43 CBC with Diff Sent. cp4 10:43 CMP Sent. cp4 10:43 Lipase Sent. cp4 10:43 Inserted saline lock: 20 gauge in right antecubital area, using aseptic technique. cp4 Blood collected. 11:24 Radiology exam delayed due to test not completed at this time. mw3 12:10 CT Abd/Pelvis - IV Contrast Only In Process Unspecified. EDMS 13:03 Jostin Aviles MD is Referral Physician. sb4 13:46 Provided Education on: kidney stone.. cp4 13:46 No provider procedures requiring assistance completed. intact, bleeding controlled, No cp4 redness/swelling at site. Pressure dressing applied. Administered Medications: 10:49 Drug: NS 0.9% IV 1000 ml IV at 1 bolus Per protocol; 1000 mL bolus Route: IV; Rate: 1 cp4 bolus; Site: right antecubital; 11:49 Follow up: Response: No adverse reaction; IV Status: Completed infusion cp4 10:49 Drug: Ondansetron IVP 4 mg IVP once; over 2 minutes Route: IVP; Site: right antecubital;cp4 11:49 Follow up: Response: No adverse reaction cp4 10:50 Drug: morphine IVP or IV 4 mg IVP once over 4 mins Route: IVP; Infused Over: 4 mins; cp4 Site: right antecubital; 11:49 Follow up: Response: No adverse reaction cp4 11:50 Not Given (Has taken advil.): TORadol - [id number] mg IVP once cp4 13:01 Drug: Flomax PO 0.4 mg PO once Route: PO; cp4 13:01 Drug: Magnesium Sulfate IVPB 1 grams IVPB once over 1 hrs Route: IVPB; Infused Over: 1 cp4 hrs; Site: right antecubital; 13:39 Drug: HYDROcodone-acetaminophen PO 5 mg-325 mg 2 tabs PO once Route: PO; cp4 Medication: 10:31 VIS not applicable for this client. ph Outcome: 13:03 Discharge ordered by MD. sb4 13:45 Discharged to home ambulatory, cp4 13:45 Condition: stable cp4 13:45 Discharge instructions given to patient, Instructed on discharge instructions, follow up and referral plans. medication usage, Demonstrated understanding of instructions, follow-up care, medications, Prescriptions given X 3, 13:48 Patient left the ED. cp4 Signatures: Dispatcher [employer] EDUT Jaelyn Amado, Zuleyka Carver RN RN Kendal Gong mw3 Emily Michaud PA-C PA-C sb4 Sylvia Person cp4
[2023-03-15 14:13] VITALS: BP 117/65; TEMP 97.2; O2SAT 100
== END ==
LOC: ER 09:48
DX: N13.2 Hydronephrosis with renal and ureteral calculous obstruction (principal); R10.11 Right upper quadrant pain; R11.2 Nausea with vomiting, unspecified
CPT/HCPCS: 85025; 81001; 36415; 81025; 83690; 80053; 74177; Q9967; J3475; J2270; J2405; J7030

== ENCOUNTER 2024-04-28 20:27 | Emergency (ER) | payer SELFPAY ==
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
[2024-04-28] MEDS ORDERED: MORPHINE 2 MG/ML SYR ONE (20:51)
[2024-04-28] MEDS ORDERED: MORPHINE 4 MG/ML SYR ONE (20:55)
[2024-04-28] MEDS ORDERED: KETOROLAC 30 MG/ML INJ ONE (20:58)
[2024-04-28] MEDS ORDERED: NA CHLORIDE 0.9% 1,000 ML ONE (20:59)
[2024-04-28] MEDS ORDERED: METOCLOPRAMIDE 10 MG/2mL INJ ONE (20:59)
[2024-04-28] MEDS ORDERED: DIPHENHYDRAMINE 50 MG/ML VIAL ONE (20:59)
[2024-04-28 21:18] LABS: Absolute Monocytes 0.9 K/uL (0.1-1.3); Basophils % 0.2 % (0-1.3); Eosinophils % 0.1 % (0-4.4); Hematocrit 37.2 % (36.0-45.0); Hemoglobin 13.1 g/dL (12.0-15.0); MCH 32.6 pg (27.0-35.0); MCHC 35.3 g/dL (32.0-36.0); MCV 92.2 fL (80-100); MPV 9.7 fL (7.6-11.3); Monocytes % 5.5 % (3.3-12.3); Neutrophils % 88.2 % (41.7-73.7); Platelets 284 thou/uL (152-406); RBC Red Blood Cell Count 4.03 M/uL (3.86-4.86); Red Cell Distribution Width 12.6 % (12.1-15.2)
[2024-04-28 21:26] LABS: Albumin 4.3 g/dL (3.4-5.0); Albumin/Globulin Ratio 1.3 (1.1-1.8); Anion Gap 11.1 mEq/L (5.0-15.0); Bilirubin Total 0.5 mg/dL (0.2-1.0); Globulin 3.4 g/dL (2.3-3.5); Potassium 3.1 mEq/L (3.5-5.1); Protein, Total 7.7 g/dL (6.4-8.2)
[2024-04-28 22:09] LABS: Band Neutrophils 3 % (0-1); Differential Total Cells Count 100; Lymphocytes 8 % (15-42); Monocytes 7 % (0-10); Segmented Neutrophils 82 % (40-80)
[2024-04-28 22:10] LABS: Blood Morphology Comment NOT SEEN (NOT SEEN); Platelet Estimate ADEQ
--- NOTE | 2024-04-28 22:17 | RAD REPORT ---
EXAMINATION: XR Foot Left 3 View CLINICAL INDICATION: Female, 29 years old. left foot pain TECHNIQUE: 3 view radiographs of the left foot were obtained. COMPARISON: No prior exam. FINDINGS: No evidence of fracture or dislocation. Normal alignment. No evidence of arthropathy or oth er focal bone lesion. Soft tissues are unremarkable. No soft tissue swelling. No significant degenerative changes. IMPRESSION: No acute or significant abnormalities.
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
[2024-04-28] MEDS ORDERED: PROMETHAZINE 25 MG TABLET ONE (23:37)
[2024-04-28] MEDS ORDERED: IBUPROFEN 400 MG TAB ONE (23:37)
[2024-04-28] MEDS ORDERED: HYDROCODONE/APAP 5/325 MG TAB ONE (23:37)
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
[2024-04-29 00:25] VITALS: BP 153/102; TEMP 98.1; O2SAT 100
== END 2024-04-28 23:55 | disposition home or self-care (01) ==
LOC: ER 20:27
DX: S06.0X9A Concussion with loss of consciousness of unspecified duration, initial encounter (principal); S93.402A Sprain of unspecified ligament of left ankle, initial encounter; S93.602A Unspecified sprain of left foot, initial encounter; S05.12XA Contusion of eyeball and orbital tissues, left eye, initial encounter; S00.432A Contusion of left ear, initial encounter; S60.221A Contusion of right hand, initial encounter; S90.32XA Contusion of left foot, initial encounter
CPT/HCPCS: 36415; 70450; 70486; 71250; 72125; 74176; 76377; 80053; 82077; 84703; 85025; 96361; 96374; 96375; 99285; J1200; J2270; J2765; J7030; Q0169

== ENCOUNTER 2024-06-15 09:59 | Emergency (ER) | payer SELFPAY ==
--- OUTSIDE RECORDS SUMMARY | 2024-06-15 10:03 | XMS REPORT | Continuity of Care Document ---
Author Name Unknown Address [address] [facility] [address] [place] [address] Organization [facility] [place] Address [address] 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 Role Phone Pcp, Patient Does Not Have A Primary Care Physic reggie RAZA HORN Attending Clinician [facility] Attending Clinician Unavailable Doctor Unassigned, [place] Attending Clinician U Jaclyn Sierra Attending Clinician [phone] Payers Payer Name Policy Type Policy Number Effective Date Expirati on Date Source [facility] 9 [id number] 2022 00:00:00 BS 2 [id number] 2022 00:00:00 Allergies, Adverse Reactions, Alerts Allergy Name Allergy Type Status Severity Reaction(s) Onset Date Inactive Date Treating Clinician Comments Source NO KNOWN ALLERGIE S Drug Class Active [facility] Social History Social Habit Start Date Stop Date Quantity Comments Source Gender identity Izzy Pickard - External Sexual orientation [facility] Alcohol intake 2022-10-14 00:00:00 2022-10-14 00:00:00 .29 /d More Pickard - External History of Social function 2022-10-14 00:00:00 2022-10-14 00:00:00 More Pickard - External Exposure to SARS-CoV-2 (event) 2019-12-09 00:00:00 2020-01-08 21:11:00 Not sure [facility] Sex Assigned At 1995 00:00:00 1995 00:00:00 More Poncebrockhemant - External Smoking Status Start Date Stop Date Source Never smoked tobacco More Poncericky - External Tobacco smoking consumption unknown [facility] Medications Ordered Medication Name Filled Medication Name Start Date Stop Date Current Medication? Ordering Clinician Indication Dosage Frequency Signature (SIG) Comments Components Source albuterol 90 mcg/actuati on inhaler 07-06 00:00: 00 Yes 2{puff} Inhale 2 Puffs every 4 (four) hours as needed for Wheezing or Shortness of Breath. [facility] codeine-gua ifenesin 10-100 mg/5 mL solution 07-06 00:00: 00 Yes 5mL Take 5 mL by mouth every 6 (six) hours as needed for Cough. [facility] ondansetron 4 mg disintegrat ing tablet 03-31 00:00: 00 Yes 4mg Take 1 tablet by mouth every 8 (eight) hours as needed for Nausea and Vomiting (N/V). [facility] naproxen sodium (ANAPROX DS) 550 mg tablet 03-31 00:00: 00 Yes 550mg Take 1 tablet by mouth 2 (two) times daily with meals. [facility] Phenylephri ne-DM-Aceta minophen (TYLENOL COLD MAX DAY) 5-10-325 mg Tab 03-31 00:00: 00 Yes As directed [facility] Doxylamine- PE-DM-Aceta minophen (TYLENOL COLD MAX NIGHT) 6.25-5-10-3 25 mg/15 mL Liqd 03-31 00:00: 00 Yes As directed [facility] albuterol 90 mcg/actuati on inhaler 03-31 00:00: 00 Yes 2{puff} Inhale 2 Puffs every 4 (four) hours as needed for Wheezing or Shortness of Breath. [facility] Nitrofurant oin&Nit. Macrocryst (MACROBID) 100 mg capsule 10-24 00:00: 00 Yes 100mg Take 1 capsule by mouth 2 (two) times daily. [facility] phenazopyri dine 200 mg tablet 10-24 00:00: 00 Yes 200mg Take 1 tablet by mouth 3 (three) times daily. [facility] traMADOL (ULTRAM) 50 mg tablet 10-24 00:00: 00 Yes 50mg Take 1 tablet by mouth every 6 (six) hours as needed for Pain (scale 7-10). [facility] ondansetron (ZOFRAN, HYDROCHLORI DE,) 4 mg tablet 10-24 00:00: 00 Yes 4mg Take 1 tablet by mouth every 8 (eight) hours as needed for Nausea and Vomiting (N/V). [facility] Vital Signs Vital Name Observation Time [...] Systolic blood pressure 2020-01-09 03:19:00 132 mm[Hg] [facility] Diastolic blood pressure 2020-01-09 03:19:00 68 mm[Hg] [facility] Heart rate 2020-01-09 03:19:00 98 /min [facility] Body temperature 2020-01-09 03:19:00 37.5 Patricia [facility] Respiratory rate 2020-01-09 03:19:00 18 /min [facility] Body weight 2020-01-09 03:19:00 48.988 kg [facility] Oxygen saturation in Arterial blood by Pulse oximetry 2020-01-09 03:19:00 98 /min [facility] Procedures Procedure Date / Time Performed Performing Clinicia n Source CONSENT/REFUSAL FOR DIAGNOSIS AND TREATMENT 2020-01-09 03:12:08 Doctor Unassigned, [place] [facility] Encounters Start Date/Time End Date/Time Encounter Type Admission Type Attending Clinicians Care Facility Care Department Encounter ID Source 2022-10-25 00:00:00 2022-10-25 00:00:00 Outpatient RAZA HORN [id number] [facility] 2022-10-15 00:00:00 2022-10-15 00:00:00 Outpatient RAZA HORN [id number] [facility] 2022-10-14 14:50:00 2022-10-14 14:50:00 Outpatient LAB90 MORE AQUINO [id number] [facility] 2022-10-14 14:00:00 2022-10-14 14:00:00 Outpatient RAZA HORN [id number] [facility] 2022-10-02 13:30:00 2022-10-02 13:30:00 Outpatient RAZA HORN [id number] [facility] 2020-01-12 00:00:00 2020-01-12 00:00:00 Patient Secure Msg Doctor Unassigned, [place] [facility] [id number] [facility] 2020-01-08 21:21:00 2020-01-08 21:57:00 Emergency Jaclyn De La Cruz [facility] [id number] [facility] 2020-01-08 21:12:00 2020-01-08 21:12:00 Emergency X [facility] ERT [id number] [facility] Notes Date/Time Note Provider Source 2022-10-14 14:36:50 Formatting of this n ote is different from the original. Chief Complaint Patient presents with Physical Patient is fasting. Patient would like STD screening check. Chioma Jhaveri MA II T [facility]
[2024-06-15 10:28] LABS: Absolute Basophils 0.1 K/uL (0-0.5); Absolute Lymphocytes (CBC) 1.6 K/uL (0.7-4.9); Absolute Monocytes 0.8 K/uL (0.1-1.3); Absolute Neutrophil 27.2 K/uL (1.8-8.0); Basophils % 0.2 % (0-1.3); Eosinophils % 0.2 % (0-4.4); Hematocrit 37.4 % (36.0-45.0); Hemoglobin 12.4 g/dL (12.0-15.0); Lymphocytes % 5.4 % (15.3-44.8); MCH 31.9 pg (27.0-35.0); MCHC 33.1 g/dL (32.0-36.0); MCV 96.5 fL (80-100); MPV 10.3 fL (7.6-11.3); Monocytes % 2.7 % (3.3-12.3); Neutrophils % 91.5 % (41.7-73.7); Nucleated Red Blood Cells % 0.1 % (0-0); Platelets 215 thou/uL (152-406); RBC Red Blood Cell Count 3.88 M/uL (3.86-4.86)
[2024-06-15] MEDS ORDERED: ONDANSETRON 4 MG/2 ML VIAL ONE (10:30)
[2024-06-15] MEDS ORDERED: NA CHLORIDE 0.9% 1,000 ML ONE (10:30)
[2024-06-15 11:15] LABS: ALT/SGPT 50 U/L (13-56); AST/SGOT 69 U/L (15-37); Albumin 3.6 g/dL (3.4-5.0); Albumin/Globulin Ratio 0.9 (1.1-1.8); Alkaline Phosphatase 77 U/L (45-117); Anion Gap 18.8 mEq/L (5.0-15.0); BUN Blood Urea Nitrogen 10 mg/dL (7-18); Bicarbonate 17 mEq/L (21-32); Bilirubin Total 0.2 mg/dL (0.2-1.0); Globulin 3.9 g/dL (2.3-3.5); Glomerular Filtration Rate 58 ml/min (=/>90); Glucose Level 244 mg/dL (74-106); Potassium 3.8 mEq/L (3.5-5.1); Protein, Total 7.5 g/dL (6.4-8.2); Sodium Level 144 mEq/L (136-145)
[2024-06-15 11:23] LABS: Bilirubin Direct < 0.2 mg/dL (0-0.2)
--- NOTE | 2024-06-15 11:56 | RAD REPORT ---
Procedure: Chest Single View HISTORY: Unresponsive COMPARISON: April 2024 FINDINGS: Mild prominence of the interstitium lung bases. Patient is reportedly inspiration. No significant pleural effusion noted. The heart is normal size. IMPRESSION: Mild prominence of the interstitium probably secondary to crowding of the pulmonary vessels infiltrat e considered less likely. PA and lateral chest series would be helpful.
--- NOTE | 2024-06-15 12:32 | EDPHYS ---
Physician Documentation [facility] Name: Miguelina Aranda Age: 29 yrs Sex: Female : 1995 Arrival Date: 06/15/2024 Time: 09:59 Bed 3 Private MD: ED Physician Sree Loomis HPI: 06/15 11:01 This 29 yrs old Female presents to ER via EMS with complaints of Possible Overdose. rn 11:01 The patient presents to the emergency department with a possible overdose. Severity of rn symptoms: At their worst the symptoms were severe in the emergency department the symptoms have improved. Patient brought in by EMS for suspected overdose. Patient was found unresponsive, respiratory rate was in the single digits, given Narcan by EMS with rapid resolution of symptoms. Patient arrived awake and alert, complaining of muscle cramps. No seizure activity after Narcan was given. Patient does not want to tell us what she took. Family here and they are unaware which she took. This is not patient's first overdose when reviewing the chart. EMS reports police or somebody else reported drugs at scene but we are not sure.. Historical: - Allergies: 10:05 No Known Drug Allergies; ph 10:04 No Known Drug Allergies; bp - PMHx: 10:05 concussion; Kidney stones (Pneumonia); Pneumonia; ph 10:04 concussion; Pneumonia; Kidney stones (Pneumonia); bp - Immunization history:: Adult Immunizations unknown, Adult Immunizations unknown. - Infectious Disease History:: UNABLE TO OBTAIN Denies. - Social history:: Smoking status: unknown Smoking status: Patient denies any tobacco usage or history of. - Family history:: not pertinent. - Hospitalizations: : No recent hospitalization is reported. ROS: 11:01 Constitutional: Negative for fever, chills, and weight loss, Neck: Negative for injury, rn pain, and swelling, Cardiovascular: Negative for chest pain, palpitations, and edema, Respiratory: Negative for shortness of breath, cough, wheezing, and pleuritic chest pain, Abdomen/GI: Positive for nausea MS/Extremity: Negative for injury and deformity, Skin: Negative for injury, rash, and discoloration, Neuro: Negative for headache, weakness, numbness, tingling, and seizure, Exam: 10:57 ECG was reviewed by the Attending Physician. rn 11:01 Constitutional: Thin female, disheveled, arrives with tremors and cramping of upper rn extremities. Awake and alert and answering questions Eyes: Pupils 2 mm, reactive, no nystagmus ENT: Dry mucous membranes Neck: No meningismus Cardiovascular: Tachycardic, regular. Respiratory: No increased work of breathing, no retractions or nasal flaring. Abdomen/GI: Soft, non-tender MS/ Extremity: Pulses equal, no cyanosis. Neuro: Awake and alert, GCS 15 Vital Signs: 10:01 BP 122 / 74; Pulse 144; Resp 20; Temp 98; Pulse Ox 97% ; bp 10:36 BP 112 / 85; Pulse 113; Resp 18; Pulse Ox 100% on R/A; ph 11:30 BP 102 / 1; Pulse 105; Resp 18; Pulse Ox 96% on R/A; ph 12:20 BP 105 / 62; Pulse 103; Resp 18; Temp 97.8; Pulse Ox 95% on R/A; ph MDM: 10:00 Medical Screening Exam initiated rn 12:30 Differential diagnosis: Overdose. Data reviewed: vital signs, nurses notes, lab test rn result(s), radiologic studies, plain films, and as a result, I will continue to observe the patient. Counseling: I had a detailed discussion with the patient and/or guardian regarding the historical points, exam findings, and any diagnostic results supporting the discharge/admit diagnosis, lab results, radiology results. Refusal of service: The patient/guardian displays adequate decision making capability and despite a detailed discussion of alternatives, benefits, risks, and consequences refuses:. ED course: Patient wide-awake, tolerating p.o., much better without requiring redosing of Narcan. Recommended repeat labs given acidosis and continued observation. Patient upset and wants to leave. Family in the room, they are trying to make her stay but they cannot. Patient is 29 years old and ripped everything off. Patient signed out AMA despite me explaining to her dangers of leaving at this time without continued observation.. 06/15 10:02 Order name: Acetaminophen; Complete Time: 11: rn 06/15 10:02 Order name: Basic Metabolic Panel; Complete Time: 11: rn 06/15 10:02 Order name: CBC with Diff rn 06/15 10:02 Order name: ETOH Level; Complete Time: 11: rn 06/15 10:02 Order name: Hepatic Function; Complete Time: 11:27 rn 06/15 10:02 Order name: Salicylate; Complete Time: 11:27 rn 06/15 10:41 Order name: Manual Differential EDMS 06/15 10:24 Order name: XRAY Chest (1 view); Complete Time: 12:17 rn 06/15 10:02 Order name: EKG - Nurse/Tech; Complete Time: 10:33 rn 06/15 10:02 Order name: IV Saline Lock; Complete Time: 10:05 rn 06/15 10:02 Order name: Labs collected and sent; Complete Time: 10:28 rn 06/15 10:43 Order name: Labs - recollect needed: recollect blue top; Complete Time: 12:16 bd EC:57 Rate is 127 beats/min. Rhythm is regular. QRS [place] is Normal. [place] interval is normal. rn QRS interval is normal. QT interval is normal. No Q waves. T waves are Normal. No ST changes noted. Clinical impression: Sinus tachycardia. Interpreted by me. Reviewed by me. Administered Medications: 11:29 Drug: Ondansetron IVP 4 mg IVP once; over 2 minutes Route: IVP; Site: left antecubital; ph 12:34 Follow up: Response: No adverse reaction ph 11:30 Drug: NS 0.9% IV 1000 ml IV at 1000 ml once; to be given as a bolus over 60 minutes ph Route: IV; Rate: 1000 ml; Site: left antecubital; 12:34 Follow up: Response: No adverse reaction; IV Status: Completed infusion; IV Intake: ph 1000ml Disposition Summary: 06/15/24 12:32 Left Against Medical Advice Notes: Location: Home rn Problem: new rn Symptoms: have improved rn Condition: Stable rn Diagnosis - Overdose rn Followup: rn - With: Private Physician - When: As needed - Reason: Recheck today's complaints, Re-evaluation by your physician Discharge Instructions: - Discharge Summary Sheet rn - Opioid Overdose rn Signatures: Dispatcher [employer] EDMS Gris Hathaway Roman, MD MD rn Hall, Patricia, RN RN Clay Silver, RN RN bp Corrections: (The following items were deleted from the chart) 10:02 10:02 ACETAMINOPHEN+C.LAB.BRZ ordered. EDMS EDMS 10:02 10:02 BASIC METABOLIC PANEL+C.LAB.BRZ ordered. EDMS EDMS 10:02 10:02 CBC+H.LAB.BRZ ordered. EDMS EDMS 10:02 10:02 ETHANOL+C.LAB.BRZ ordered. EDMS EDMS 10:02 10:02 HEPATIC FUNCTION+C.LAB.BRZ ordered. EDMS EDMS 10:02 10:02 Test, Urine+UC.LAB.BRZ ordered. EDMS EDMS 10:02 10:02 SALICYLATE+C.LAB.BRZ ordered. EDMS EDMS 10:02 10:02 Urinalysis+U.LAB.BRZ ordered. EDMS EDMS 10:02 10:02 URINE DRUG SCREEN+UC.LAB.BRZ ordered. EDMS EDMS 11:51 10:02 PROTIME (+INR)+COAG.LAB.BRZ ordered. EDMS EDMS 11:51 10:02 PTT, ACTIVATED+COAG.LAB.BRZ ordered. EDMS EDMS 12:30 12:30 BASIC METABOLIC PANEL+C.LAB.BRZ ordered. EDMS EDMS
--- NOTE | 2024-06-15 12:32 | ER ---
Nurse's Notes [facility] Name: Miguelina Aranda Age: 29 yrs Sex: Female : 1995 Arrival Date: 06/15/2024 Time: 09:59 Bed 3 Private MD: Diagnosis: Overdose Presentation: 06/15 10:01 Chief complaint: EMS states: FOUND DOWN AT [place] WITH DRUG PARAPHENALIA BY PD. bp Coronavirus screen: At this time, the client does not indicate any symptoms associated with coronavirus-19. Ebola Screen: No symptoms or risks identified at this time. Initial Sepsis Screen: Does the patient meet any 2 criteria? No. Patient's initial sepsis screen is negative. Does the patient have a suspected source of infection? No. Patient's initial sepsis screen is negative. Risk Assessment: Do you want to hurt yourself or someone else? Patient reports no desire to harm self or others. Onset of symptoms is unknown. Care prior to arrival: Medication(s) given: NARCAN 1MG IV initiated. 22 GA, in the left antecubital area. 10:01 Method Of Arrival: EMS: [facility] bp 10:01 Acuity: ANJUM 2 bp Triage Assessment: 10:04 General: Appears distressed, unkempt, Behavior is uncooperative. Pain: Denies pain. bp EENT: No deficits noted. Neuro: Level of Consciousness is lethargic, Oriented to person, place. Cardiovascular: No deficits noted. Respiratory: No deficits noted. GI: No signs and/or symptoms were reported involving the gastrointestinal system. : No signs and/or symptoms were reported regarding the genitourinary system. Derm: No deficits noted. Musculoskeletal: No deficits noted. Historical: - Allergies: 10:05 No Known Drug Allergies; ph 10:04 No Known Drug Allergies; bp - PMHx: 10:05 concussion; Kidney stones (Pneumonia); Pneumonia; ph 10:04 concussion; Pneumonia; Kidney stones (Pneumonia); bp - Immunization history:: Adult Immunizations unknown, Adult Immunizations unknown. - Infectious Disease History:: UNABLE TO OBTAIN Denies. - Social history:: Smoking status: unknown Smoking status: Patient denies any tobacco usage or history of. - Family history:: not pertinent. - Hospitalizations: : No recent hospitalization is reported. Screenin:35 [facility] ED Fall Risk Assessment (Adult) History of falling in the last 3 months, ph including since admission No falls in past 3 months (0 pts) Confusion or Disorientation Yes (5 pts) Intoxicated or Sedated Yes (3 pts) Impaired Gait No (0 pts) Mobility Assist Device Used No (0 pt) Altered Elimination No (0 pt) Score/Fall Risk Level 3 or more points = High Risk Oriented to surroundings, Maintained a safe environment, Provided non-skid footwear, Hourly rounding (assess needs \\T\\ fall precautionary measures) done. Abuse screen: Denies threats or abuse. Denies injuries from another. Nutritional screening: No deficits noted. Tuberculosis screening: No symptoms or risk factors identified. Assessment: 10:33 General: Appears in no apparent distress. Behavior is drowsy. Pain: Denies pain. Neuro: ph Level of Consciousness is awake, obeys commands, Oriented to person, place, time, situation. Cardiovascular: Capillary refill < 3 seconds in bilateral fingers. Respiratory: Airway is patent Respiratory effort is even, unlabored. GI: Pt is actively vomiting. Derm: Skin is pale, Skin temperature is cool. Musculoskeletal: Circulation, motion, and sensation intact. Range of motion: intact in all extremities. 11:30 Reassessment: Patient appears in no apparent distress at this time. Patient and/or ph family updated on plan of care and expected duration. Pain level reassessed. Patient is alert, oriented x 3, equal unlabored respirations, skin warm/dry/pink. Pt more awake and alert, states, " All I did was some cocaine last night.". 12:15 Reassessment: Patient appears in no apparent distress at this time. Patient and/or ph family updated on plan of care and expected duration. Pain level reassessed. Patient is alert, oriented x 3, equal unlabored respirations, skin warm/dry/pink. Dr Loomis at bedside to speak w/ pt about admission, pt states that she wants to leave, will sign out AMA. Overdose: 10:35 [place] Suicide Severity Screening: "In the past month, have you wished you were ph or wished you could go to sleep and not wake up?" Patient responds "no." "In the past month, have you actually had any thoughts of killing yourself?" Patient responds "no." "In your lifetime, have you ever done anything, started to do anything, or prepared to do anything to end your life?" Patient responds "no.". 10:36 [place] Suicide Severity Screening: "In the past month, have you wished you were ph or wished you could go to sleep and not wake up?" Patient responds "no.". Vital Signs: 10:01 BP 122 / 74; Pulse 144; Resp 20; Temp 98; Pulse Ox 97% ; bp 10:36 BP 112 / 85; Pulse 113; Resp 18; Pulse Ox 100% on R/A; ph 11:30 BP 102 / 1; Pulse 105; Resp 18; Pulse Ox 96% on R/A; ph 12:20 BP 105 / 62; Pulse 103; Resp 18; Temp 97.8; Pulse Ox 95% on R/A; ph Vitals: 12:20 Cardiac Rhythm Assessment Sinus tach. ph ED Course: 10:00 Patient arrived in ED. ph 10:00 Sree Loomis MD is Attending Physician. rn 10:01 Clay Vang RN is Primary Nurse. bp 10:04 Triage completed. bp 10:05 Arm band placed on Patient placed in an exam room, on a stretcher, on teletypesetter monitor, ph on pulse oximetry. 10:10 Maintain EMS IV. Dressing intact. Good blood return noted. Site clean \\T\\ dry. Gauge \\T\\ bp site: 22 LAC. Flushed with 10 mL NS. 10:35 Patient has correct armband on for positive identification. Bed in low position. Call ph light in reach. Side rails up X2. Client placed on continuous cardiac and pulse oximetry monitoring. NIBP monitoring applied. teletypesetter monitor on. Warm blanket given. 10:55 XRAY Chest (1 view) In Process Unspecified. EDMS 12:35 No provider procedures requiring assistance completed. IV discontinued, intact, ph bleeding controlled, No redness/swelling at site. Pressure dressing applied. Administered Medications: 11:29 Drug: Ondansetron IVP 4 mg IVP once; over 2 minutes Route: IVP; Site: left antecubital; ph 12:34 Follow up: Response: No adverse reaction ph 11:30 Drug: NS 0.9% IV 1000 ml IV at 1000 ml once; to be given as a bolus over 60 minutes ph Route: IV; Rate: 1000 ml; Site: left antecubital; 12:34 Follow up: Response: No adverse reaction; IV Status: Completed infusion; IV Intake: ph 1000ml Medication: 10:35 VIS not applicable for this client. ph Intake: 12:34 IV: 1000ml; Total: 1000ml. ph Outcome: 12:36 Patient left the ED. iw Signatures: Dispatcher [employer] Izabel Burleson RN RN iw Sree Loomis MD MD rn Hall, Patricia, RN RN ph Peltier, Brian, RN RN bp Corrections: (The following items were deleted from the chart) 12:34 12:32 NS 0.9% IV 1000 ml IV at 1000 ml in left antecubital ph ph
[2024-06-15 14:24] LABS: Differential Total Cells Count 100
[2024-06-15 14:25] LABS: Blood Morphology Comment NOT SEEN (NOT SEEN); Eosinophils 1 % (0-3); Lymphocytes 5 % (15-42); Monocytes 1 % (0-10); Platelet Estimate INCR; Segmented Neutrophils 92 % (40-80)
[2024-06-16 04:14] VITALS: BP 105/62; TEMP 97.8; O2SAT 95
--- NOTE | 2024-06-16 12:36 | EKG ---
Test Date: 2024-06-15 Test Time: 10:25:38 Dental Office Receptionist: PH MEASUREMENT RESULTS: Intervals: Rate: 127 AR: 130 QRSD: 94 QT: 312 QTc: 453 [place]: P: 72 AR: 130 QRS: 76 T: -19 INTERPRETIVE STATEMENTS: Sinus tachycardia Possible Left atrial enlargement ST & T wave abnormality, consider inferior ischemia Abnormal ECG Compared to ECG 10/07/2018 15:20:18 ST (T wave) deviation now present Possible ischemia now present Sinus rhythm no longer present Right-axis deviation no longer present Incomplete right bundle-branch block no longer present Electronically Signed On 06-16-24 12:35:54 CDT by Pierre Ellis
== END 2024-06-15 12:36 | disposition left against medical advice (07) ==
LOC: ER 09:59
DX: T50.901A Poisoning by unspecified drugs, medicaments and biological substances, accidental (unintentional), initial encounter (principal)
CPT/HCPCS: 36415; 71045; 80048; 80076; 80143; 80179; 82077; 85025; 93005; J2405; J7030